=== PATIENT | female | born 1985 ===

== ENCOUNTER 2017-10-16 10:48 | Emergency (ER) | payer BC ==
[2017-10-16 11:14] VITALS: BP 113/69
[2017-10-16] MEDS ORDERED: Acetaminophen TAB* 325 MG PO ONE (11:39)
--- NOTE | 2017-10-16 12:09 | UC ---
HPI Febrile Illness - HPI Summary HPI Summary: Pt c/o sudden onset ST, fever, chills, generalized malaise, fatigue X 3 days. - History of Current Complaint Chief Complaint: UCGI Time Seen by Provider: 10/16/17 11:49 Hx Obtained From: Patient Hx Last Menstrual Period: 10/09/17 Onset/Duration: Started Days Ago Timing: Constant Initial Severity: Mild Current Severity: Moderate Pain Intensity: 7 Alleviating Factors: OTC Medicine Associated Signs and Symptoms: Chills, Headache, Myalgia, Sore Throat - Risk Factors Pseudomonas Risk Factors: Negative Serious Bacterial Infection Risk Factors: Negative - Allergy/Home Medications Allergies/Adverse Reactions: Allergies Allergy/AdvReac Type Severity Reaction Status Date / Time No Known Allergies Allergy Verified 10/16/17 11:08 Home Medications: Home Medications NK [No Home Medications Reported] 10/16/17 [History Confirmed 10/16/17] PMH/Surg Hx/FS Hx/Imm Hx Previously Healthy: Yes - Surgical History Surgical History: None - Family History Known Family History: Positive: Cardiac Disease - Social History Occupation: Employed Full-time Lives: With Family Alcohol Use: None Substance Use Type: None Smoking Status (MU): Never Smoked Tobacco Have You Smoked in the Last Year: No Review of Systems Constitutional: Fever, Chills, Fatigue Skin: Negative Eyes: Negative ENT: Sore Throat, Ear Ache Respiratory: Negative Cardiovascular: Negative Gastrointestinal: Negative Genitourinary: Dysuria Motor: Negative Neurovascular: Negative Musculoskeletal: Myalgia Neurological: Headache Psychological: Negative Is Patient Immunocompromised?: No All Other Systems Reviewed And Are Negative: Yes Physical Exam Triage Information Reviewed: Yes Appearance: Ill-Appearing Vital Signs: Initial Vital Signs Temp 102.2 F 10/16/17 11:09 Pulse 103 10/16/17 11:09 Resp 16 10/16/17 11:09 BP 113/69 10/16/17 11:09 Pulse Ox 100 10/16/17 11:09 Vital Signs Reviewed: Yes Eye Exam: Normal ENT Exam: Other ENT: Positive: Pharyngeal erythema, Other - ceruemn right ear canal Dental Exam: Normal Neck exam: Normal Respiratory Exam: Normal Cardiovascular Exam: Normal Musculoskeletal Exam: Normal Neurological Exam: Normal Psychological Exam: Normal Skin Exam: Normal Diagnostics - Laboratory Diagnostic Studies Completed/Ordered: Negative Flu, rapid strep, UA. Course/Dx - Febrile Illness Differential Diagnoses: Fever of Unknown Origin, Viremia - Diagnoses Clinic Provider Diagnoses: fever unknown origin Discharge - Sign-Out/Discharge Documenting (check all that apply): Discharge/Admit/Transfer - Discharge Plan Condition: Stable Disposition: HOME Patient Education Materials: Fever in Adults (ED) Forms: *Work Release Referrals: Non Staff,Doctor [Primary Care Provider] - If Needed - Billing Disposition and Condition Condition: STABLE Disposition: Home
== END 2017-10-16 12:30 | disposition home or self-care (01) ==
LOC: UCCORT 10:48
DX: R50.9 Fever, unspecified (principal); B34.9 Viral infection, unspecified
CPT/HCPCS: 81003; 87502; 87651; 99202; A9270-GY; G0463